=== PATIENT | female | born 2000 | race African-American/Black ===

== ENCOUNTER 2024-09-24 18:05 | Emergency (ER) | payer MEDICAID ==
[~2024-09-24] VITALS: Ht 162.6 cm; Wt 75.0 kg
[2024-09-24 18:27] VITALS: O2SAT 100
[2024-09-24] MEDS: ACETAMINOPHEN 325MG TABLET PO ONE (19:53)
[2024-09-24 20:01] LABS: CLARITY URINE CLEAR (CLEAR); COLOR URINE YELLOW (YELLOW); GLUCOSE URINE NEGATIVE (NEGATIVE); KETONES URINE TRACE (NEGATIVE); LEUKOCYTE ESTERASE URINE NEGATIVE (NEGATIVE); NITRITE URINE NEGATIVE (NEGATIVE); OCCULT BLOOD URINE NEGATIVE (NEGATIVE); PH URINE 5.5 (4.5-8.0); PROTEIN URINE NEGATIVE (NEGATIVE); SPECIFIC GRAVITY URINE 1.026 (1.005-1.030); UROBILINOGEN URINE 0.2 E.U./dL (0.2-1.0)
[2024-09-24] MEDS ORDERED: ACET-2708 MT (21:07)
[2024-09-24 21:16] VITALS: BP 120/60; PULSE 84; RESP 18; TEMP 37.3; O2SAT 99
== END 2024-09-24 21:24 | disposition home or self-care (01) ==
LOC: ER 18:05
DX: B34.9 Viral infection, unspecified (principal)
CPT/HCPCS: 81003; 81025; 87070; 87430; 99283

== ENCOUNTER 2025-04-01 10:50 | Emergency (ER) | payer MEDICAID, MEDICARE ==
[~2025-04-01] VITALS: Ht 167.6 cm; Wt 85.0 kg
[~2025-04-01 10:50] MED LIST: ACET-2708 MT
[2025-04-01 11:01] VITALS: TEMP 36.8; O2SAT 100
[2025-04-01 11:59] LABS: BASOPHILS % 0.5 % (0.0-2.0); EOSINOPHILS % 1.6 % (0.0-5.0); HEMATOCRIT. 34.8 % (36.0-48.0); HEMOGLOBIN. 11.7 g/dL (12.0-16.0); LYMPHOCYTES % 35.6 % (20.0-50.0); MEAN PLATELET VOLUME 7.7 fl (7.4-10.4); MONOCYTES % 7.9 % (2.0-8.0); NEUTROPHILS % 54.4 % (40.0-76.0); PLATELET 320 x1000/uL (130-400); RED BLOOD CELL COUNT 3.74 mill/uL (4.2-5.4); RED CELL DISTRIBUTION WIDTH 12.8 % (11.6-14.6)
[2025-04-01 12:19] LABS: CREATININE 0.9 mg/dL (0.6-1.0)
[2025-04-01 12:20] LABS: UREA NITROGEN BLOOD 9 mg/dL (9-23)
[2025-04-01 12:22] LABS: ASPARTATE AMINOTRANSFERASE 22 IU/L (<34); BILIRUBIN DIRECT 0.2 mg/dL (<=3.0); BILIRUBIN TOTAL 0.9 mg/dL (0.1-1.0); PROTEIN TOTAL 7.8 g/dL (6.0-8.3)
[2025-04-01 12:23] LABS: B-HCG QUANTITATIVE < 1 mIU/mL (<6)
[2025-04-01 13:36] LABS: CLARITY URINE CLOUDY (CLEAR); COLOR URINE YELLOW (YELLOW); GLUCOSE URINE NEGATIVE (NEGATIVE); KETONES URINE TRACE (NEGATIVE); LEUKOCYTE ESTERASE URINE NEGATIVE (NEGATIVE); NITRITE URINE NEGATIVE (NEGATIVE); OCCULT BLOOD URINE 3+ (NEGATIVE); PH URINE 7.0 (4.5-8.0); PROTEIN URINE TRACE (NEGATIVE); SPECIFIC GRAVITY URINE 1.025 (1.005-1.030); UROBILINOGEN URINE 1.0 E.U./dL (0.2-1.0)
[2025-04-01] MEDS ORDERED: NORE1TAB26 MT (13:48)
[2025-04-01 13:51] LABS: BACTERIA URINE 1+; RBC URINE TNTC /hpf (0-2); SQUAMOUS EPITHELIAL CELL URINE 2+ /lpf (RARE/1+); YEAST URINE NONE SEEN
[2025-04-01 14:04] VITALS: BP 114/60; PULSE 61; RESP 18; O2SAT 100
== END 2025-04-01 14:06 | disposition home or self-care (01) ==
LOC: ER 10:50
DX: N93.9 Abnormal uterine and vaginal bleeding, unspecified (principal); N89.8 Other specified noninflammatory disorders of vagina; Z79.899 Other long term (current) drug therapy
CPT/HCPCS: 36415; 76830; 76856; 80048; 80076; 81003; 81025; 83735; 84702; 85025; 86850; 86900; 99284